=== PATIENT | male | born 1995 | race African-American/Black ===

== ENCOUNTER 2017-02-28 19:56 | Emergency (ER) | payer OTHER ==
[2017-03-01] MEDS ORDERED: ONDANSETRON 4 MG TAB.RAPDIS PO ONE (01:37)
[2017-03-01] MEDS ORDERED: CLINDAMYCIN HCL 150 MG CAPSULE PO ONE (01:37)
[2017-03-01] MEDS ORDERED: HYDROMORPHONE HCL INJ/PF 2 MG/ML AMPULE IM ONE (01:37)
[2017-03-01] MEDS ORDERED: IBUPROFEN 800 MG TABLET PO ONE (01:38)
[2017-03-01] MEDS ORDERED: LIDOCAINE 1% INJ-PF (10 MG/ML) 30 ML SDV INJ ONE (01:38)
--- NOTE | 2017-03-01 01:42 | ER Document Report ---
ED General - General Chief Complaint: Abscess Stated Complaint: BUTTOCK PAIN Time Seen by Provider: 03/01/17 01:19 Information source: Patient - HPI Notes: 22-year-old black male otherwise healthy presents emergency department with report of a 5 day history of gradually progressive swelling to the right lower gluteal region. The patient denies any injury to the area. He reports no fever or chills. He does report mild constipation with no BM for 3 to 4 days. The patient reports no abdominal pain. No history of MRSA or skin abscesses. - Related Data Allergies/Adverse Reactions: No Known Allergies Allergy (Unverified 02/28/17 20:24) Past Medical History - General Information source: Patient - Social History Smoking Status: Never Smoker Chew tobacco use (# tins/day): No Frequency of alcohol use: Occasional Drug Abuse: None Lives with: Family Family History: Reviewed & Not Pertinent Renal/ Medical History: Denies: Hx Peritoneal Dialysis Surgical Hx: Negative - Immunizations Hx Diphtheria, Pertussis, Tetanus Vaccination: Yes Review of Systems - Review of Systems Notes: REVIEW OF SYSTEMS: CONSTITUTIONAL : Denies fever, chills, or sweats. Denies recent illness. EENT: Denies eye, ear, throat, or mouth pain or symptoms. Denies nasal or sinus congestion or discharge. Denies throat, tongue, or mouth swelling or difficulty swallowing. CARDIOVASCULAR: Denies chest pain. Denies palpitations or racing or irregular heart beat. Denies ankle edema. RESPIRATORY: Denies cough, cold, or chest congestion. Denies shortness of breath, difficulty breathing, or wheezing. GASTROINTESTINAL: Denies abdominal pain or distention. Denies nausea, vomiting , or diarrhea. Denies blood in vomitus, stools, or per rectum. Denies black, tarry stools. GENITOURINARY: Denies difficulty urinating, painful urination, burning, frequency, blood in urine, or discharge. MUSCULOSKELETAL: Denies back or neck pain or stiffness. Denies joint pain or swelling. SKIN: Denies rash, or sores. HEMATOLOGIC : Denies easy bruising or bleeding. LYMPHATIC: Denies swollen, enlarged glands. NEUROLOGICAL: Denies confusion or altered mental status. Denies passing out or loss of consciousness. Denies dizziness or lightheadedness. Denies headache. Denies weakness or paralysis or loss of use of either side. Denies problems with gait or speech. Denies sensory loss, numbness, or tingling. Denies seizures. PSYCHIATRIC: Denies anxiety or stress. Denies depression, suicidal ideation, or homicidal ideation. ALL OTHER SYSTEMS REVIEWED AND NEGATIVE. Dictation was performed using [employer] voice recognition software Physical Exam - Vital signs Vitals: Temp Pulse BP Pulse Ox 98.9 F 121 H 85/50 L 100 02/28/17 20:23 02/28/17 20:23 02/28/17 20:23 02/28/17 20:23 - Notes Notes: PHYSICAL EXAMINATION: GENERAL: Well-appearing, well-nourished and in no acute distress. HEAD: Atraumatic, normocephalic. EYES: Pupils equal round and reactive to light, extraocular movements intact, sclera anicteric, conjunctiva are normal. ENT: Nares patent, oropharynx clear without exudates. Moist mucous membranes. NECK: Normal range of motion, supple without lymphadenopathy LUNGS: Breath sounds clear to auscultation bilaterally and equal. No wheezes rales or rhonchi. HEART: Regular rate and rhythm without murmurs ABDOMEN: Soft, nontender, nondistended abdomen. No guarding, no rebound. No masses appreciated. Musculoskeletal: Normal range of motion, no pitting or edema. No cyanosis. NEUROLOGICAL: Cranial nerves grossly intact. Normal speech, normal gait. Normal sensory, motor exams PSYCH: Normal mood, normal affect. SKIN: Abscess right lower gluteal region measuring 4 x 5 cm without obvious perianal or scrotal extension or crossing of the midline. Rectal -no obvious perianal extension of the abscess. Course - Re-evaluation Re-evalutation: 03/01/17 04:11 Following discussion of risks, alternatives, benefits, the patient agreed to incision and drainage of the gluteal abscess. The patient in the wound area cleaned with Shur-Clens 3, then locally infiltrated with lidocaine 1% 1.5 cc then a 1.2 cm laceration was made into the abscess and purulent nonodorous material was obtained which was sent for culture. Wound area was further irrigated and abscess had loculations gently broken up. There was again no obvious perianal extension noted. Wound area was then gently packed with 1/2 inch iodoform gauze with good result. Tolerated well. Blood loss less than 5 cc estimated. 03/01/17 04:16 - Vital Signs Vital signs: Temp Pulse Resp BP Pulse Ox 98.4 F 65 18 105/52 L 98 03/01/17 04:00 03/01/17 04:00 03/01/17 04:00 03/01/17 04:00 03/01/17 04:00 Discharge - Discharge Clinical Impression: Kathi-rectal abscess Constipation Qualifiers: Constipation type: unspecified constipation type Qualified Code(s): K59.00 - Constipation, unspecified Condition: Stable Disposition: HOME, SELF-CARE Instructions: Oral Narcotic Medication ([facility]), Post Incision and Drainage Additional Instructions: Follow-up with surgery in 2 days for packing removal and repeat evaluation of the perirectal abscess. Take MiraLAX for constipation as directed. Drink plenty of fluids. Return to the ED in case of fever, severe pain or swelling. warm water soaks daily in the bathtub with Epsom salts. Prescriptions: Ibuprofen [Motrin 800 mg Tablet] 800 mg PO Q8HP PRN #30 tab PRN Reason: Clindamycin HCl [Cleocin 300 mg Capsule] 300 mg PO TID #30 capsule Oxycodone HCl/Acetaminophen [Percocet 5-325 mg Tablet] 1 - 2 tab PO Q4H PRN #25 tablet PRN Reason: Forms: Return to Work
[2017-03-01 04:15] VITALS: BP 105/52
== END 2017-03-01 04:26 | disposition home or self-care (01) ==
LOC: ER 19:56
PROC: 0H98XZZ Drainage of Buttock Skin, External Approach (ICD-10-PCS; principal; 2017-02-28)
DX: L02.31 Cutaneous abscess of buttock (principal); K59.00 Constipation, unspecified
CPT/HCPCS: 99283; 96372; 87070; 87205; 82962; 87075; 87077; 87186; 10060; S0119; J3490; J1170